=== PATIENT | female | born 1985 | race Caucasian/White ===

== ENCOUNTER 2025-03-24 21:07 | Emergency (ER) | payer MEDICAID, SELFPAY ==
[2025-03-24 21:08] VITALS: BP 165/109; PULSE 85; RESP 15; TEMP 36.2; O2SAT 99; BMI 35.6
[2025-03-24 21:43] VITALS: BP 131/82; BP 144/89; BP 148/93; PULSE 81; PULSE 87; PULSE 92
[2025-03-24 21:47] LABS: Hematocrit 36.2 % (37-47); Hemoglobin 12.2 g/dL (12.0-15.0); Mean Corp Hgb Conc 33.7 g/dL (32-36); Mean Corpuscular Volume 81.3 fL (81-99); Mean Platelet Vol. 9.5 fl (6.2-12.0); Platelet Count 406 K/mm3 (150-450); RBC Distribution Width CV 13.7 % (11.6-14.6); RBC Distribution Width SD 40.2 fl (35.1-43.9); Red Blood Count 4.45 M/mm3 (4.2-5.4); White Blood Count 12.7 K/mm3 (4.4-11.0)
[2025-03-24 23:02] LABS: Anion Gap 13 (5-15); BUN 16 mg/dL (4-19); BUN/Creat Ratio 16.1 RATIO (10-20); Calcium,Total 9.2 mg/dL (7.6-11.0); Carbon Dioxide 18.8 mmol/L (21.0-32.0); Chloride 104 mmol/L (98-108); Estimated Creatinine Clearance 85.80 ml/min (50-250); Glucose 86 mg/dL (70-99); Potassium 3.7 mmol/L (3.3-5.1)
[2025-03-24 23:07] VITALS: BP 138/77; PULSE 79; RESP 16; O2SAT 100
--- NOTE | 2025-03-24 23:30 | EX.ED.DYSGE1 ---
HPI History of Present Illness Chief Complaint: Dizziness Detail of Chief Complaint: There is syncope Informant: patient Onset/Context/Timing Onset: Today and Days Context: Sudden Onset Timing: Intermittent Quality: Patient becomes pale, sweaty lightheaded and feels she is going to pass out Location: Occurred at work this evening. Current Severity: Gone Maximum Severity: Severe Worsened by: Nothing specific Relieved by: Sitting down Associated Symptoms Associated Symptoms: Nausea, blurred vision, pallor and diaphoresis Narrative Narrative: Patient is a 40-year-old female. She was admitted to [facility] on March 22. She stayed overnight. She was discharged with a Holter monitor. She was told if there is any irregularity that she was notified. While at work she became pale, sweaty and felt she was going to pass out. She did feel nauseous. She was told to sit down. She was in an air conditioned room at work. She denies headache, visual, ocular auditory symptoms. She denies chest pain, palpitations or shortness of breath. She denied abdominal pain, black stool or maroon stool. She denied paresthesia, anesthesia or motor weakness. She denied problems with coordination or balance. Prior similar symptoms: Yes Recent Illness/Hospitalization: Yes [facility] Medical History Physical exam, pre-employment Home Medications ?Medication ?Instructions ?Recorded ?Last Taken ?Type albuterol sulfate 90 mcg/actuation 2 puff inhalation Q6H PRN PRN 03/24/25 Unknown History aerosol inhaler wheezing drospirenone (contraceptive) 4 mg 1 tab PO DAILY 03/24/25 Unknown History (28) tablet (Slynd) hydrochlorothiazide 25 mg tablet 25 mg PO QDAY 03/24/25 Unknown History sumatriptan succinate 50 mg tablet 50 mg PO Q2H PRN PRN migraine 03/24/25 Unknown History Allergy/AdvReac Type Severity Reaction Status Date / Time No Known Allergies Allergy Verified 03/24/25 21:08 Family History no significant family his Social History Smoking Status: Never smoker ROS ROS ED Constitutional Constitutional ED: Denies chills, fever(s), subjective, sweats or weight loss Eyes Eyes: Reports change in vision bilateral (During events); Denies blurry vision ENT ENT ED: Denies ear pain, rhinorrhea or sore throat Cardiovascular Cardiovascular: Denies chest pain, palpitations or racing heartbeat Respiratory/Chest Respiratory/Chest: Denies cough or dyspnea Gastrointestinal Gastrointestinal: Reports nausea; Denies abdominal pain, constipation, diarrhea or melena Musculoskeletal Musculoskeletal: Denies arthralgias, back pain or myalgias Integumentary Denies abscess, Abrasions or rash Neurologic Neurologic: Denies headache(s), paresthesias or weakness Endocrine Endocrinology: Denies cold intolerance or heat intolerance Hematologic/Lymphatic Hematologic/Lymphatic: Reports systems reviewed and no addt'l complaints, except as documented EXAM Physical Exam Const Vital Signs: 03/24/25 21:08 03/24/25 21:43 03/24/25 23:07 Temperature 97.2 F L Temperature Source Temporal Pulse Rate 85 79 Pulse Rate [Lying] 81 Pulse Rate [Sitting (for 1 minute prior to obtaining)] 87 Pulse Rate [Standing (for 1 minute prior to obtaining)] 92 Respiratory Rate 15 16 Blood Pressure 165/109 H 138/77 H Blood Pressure [Lying] 131/82 H Blood Pressure [Sitting (for 1 minute prior to obtaining)] 148/93 H Blood Pressure [Standing (for 1 minute prior to obtaining)] 144/89 H Blood Pressure Mean 127 97 Blood Pressure Mean [Lying] 98 Blood Pressure Mean [Sitting (for 1 minute prior to obtaining)] 111 Blood Pressure Mean [Standing (for 1 minute prior to obtaining)] 107 Pulse Ox 99 100 Oxygen Delivery Method Room Air Room Air 03/24/25 23:44 Temperature 97.2 F L Temperature Source Pulse Rate 80 Pulse Rate [Lying] Pulse Rate [Sitting (for 1 minute prior to obtaining)] Pulse Rate [Standing (for 1 minute prior to obtaining)] Respiratory Rate 18 Blood Pressure 126/88 H Blood Pressure [Lying] Blood Pressure [Sitting (for 1 minute prior to obtaining)] Blood Pressure [Standing (for 1 minute prior to obtaining)] Blood Pressure Mean 100 Blood Pressure Mean [Lying] Blood Pressure Mean [Sitting (for 1 minute prior to obtaining)] Blood Pressure Mean [Standing (for 1 minute prior to obtaining)] Pulse Ox 98 Oxygen Delivery Method Positive well nourished and well developed Constitutional Narrative: Vital signs noted. Orthostatic vital signs were negative. She does have an elevated blood pressure. She does have a history of hypertension. She is presently on hydrochlorothiazide. General Appearance ED: well developed, NAD and pallor; Negative for cyanotic or diaphoretic HEENT HEENT Narrative: Atraumatic and normocephalic. Ears normal. Nares patent. Mucosa is moist. Eyes PERRL and EOMs intact bilaterally General Eye ED: Negative for pale conjunctiva or scleral icterus Neck no lymphadenopathy, supple and no JVD Chest Wall inspection of chest normal and palpation of chest normal Resp normal respiratory effort and clear to auscultation bilaterally Cardio regular rate, regular rhythm, S1 normal heart sound, S2 normal heart sound and no murmurs GI normal to inspection, nondistended, normoactive bowel sounds, non-tender and non-distended; Negative for hepatosplenomegaly or no masses Extremity normal to inspection General Extremety ED: Negative for edema or tenderness General Extremity: Negative for edema Neuro oriented x3, CN's II-XII intact bilaterally and no sensory deficits noted Sensorium / Orientation: alert Motor Exam: strength 5/5 throughout Psych mental status grossly normal Skin no rashes or lesions noted, no wounds and skin turgor normal General Skin Exam: pallor; Negative for elasticity normal or jaundice MDM MDM MDM Narrative Medical decision making narrative: Patient states she contacted the biometric number. She was told there was no bradycardia or tachycardia or dysrhythmia. CBC was obtained that she appears pale to determine if she has had a drop in her hemoglobin. EKG to determine if there is any dysrhythmia or evidence of preexcitation syndrome. Electrolytes to assess potassium. Patient did contact the Holter monitor service. She apparently had no dysrhythmia. Lab Data Attestation: I reviewed the patient's lab results. Lab results narrative: White count is slightly elevated 12.7. H&H is unremarkable. BMP reveals slight decrease in CO2 of 18.8 with a normal anion gap. Labs: Laboratory Results - last 24 hr 03/24/25 21:29 WBC 12.7 H RBC 4.45 Hgb 12.2 Hct 36.2 L MCV 81.3 MCH 27.4 MCHC 33.7 RDW Std Deviation 40.2 RDW Coeff of Shravan 13.7 Plt Count 406 MPV 9.5 Sodium 136 Potassium 3.7 Chloride 104 Carbon Dioxide 18.8 L Anion Gap 13 BUN 16 Creatinine 0.99 Estim Creat Clear Calc 85.80 Est GFR (MDRD) Non-Af 74 BUN/Creatinine Ratio 16.1 Glucose 86 Calcium 9.2 EKG Initial EKG: Attestation: I personally reviewed and interpreted this EKG as follows: Interpretation: Sinus Rhythm (Rate is 88. The EKG is normal. HI interval is 156 ms. QRS duration 84 ms. QT duration 290 ms. [place] is normal) Treatment and Re-Evaluation :: Patient was informed her tests are all normal. She was discharged to home. Recommend keeping her appointment with her doctor scheduled for April 20. Discharge Plan Triage Chief Complaint: Dizziness ED Provider: Wilmer Kaufman Dx/Rx/DC Orders Clinical Impression: Near syncope, Elevated blood pressure reading with diagnosis of hypertension Instructions: ED Near-Fainting, Uncertain Cause Prescriptions: No Action sumatriptan succinate 50 mg tablet 50 mg PO Q2H PRN PRN (Reason: migraine) albuterol sulfate 90 mcg/actuation HFA aerosol inhaler 2 puff INHALATION Q6H PRN PRN (Reason: wheezing) Slynd 4 mg (28) tablet 1 tab PO DAILY hydrochlorothiazide 25 mg tablet 25 mg PO QDAY Primary Care Provider: Dana Marshall Referrals: Dana Marshall PA [Primary Care Provider] - Keep Noemi appointment Print Language: Yi Disposition Disposition: Home, Self Care Discharge Date/Time: 03/24/25 23:45
[2025-03-24 23:44] VITALS: BP 126/88; PULSE 80; RESP 18; TEMP 36.2; O2SAT 98
== END 2025-03-24 23:45 | disposition home or self-care (01) ==
PROVIDERS: Emergency Provider Emergency Medicine; PCP Physician Assistant Medical; Visit Provider Emergency Medicine
DX: R55 Syncope and collapse (principal); R42 Dizziness and giddiness; R11.0 Nausea; R03.0 Elevated blood-pressure reading, without diagnosis of hypertension
CPT/HCPCS: 80048; 85027; 93005; 99284; A4216